=== PATIENT | male | born 1970 | race Caucasian/White ===

== ENCOUNTER 2017-04-28 04:26 | Emergency (ER) | payer BC ==
--- NOTE | 2017-04-28 05:09 | EDM.PDOC ---
<Luis Chan - Last Filed: 04/28/17 07:06> ED HPI GENERAL MEDICAL PROBLEM - General Chief Complaint: Back Pain or Injury Stated Complaint: LOWER LEFT BACK PAIN Time Seen by Provider: 04/28/17 05:00 Source of Information: Reports: Patient History Limitations: Reports: No Limitations - History of Present Illness INITIAL COMMENTS - FREE TEXT/NARRATIVE: For 46 years old male patient presents with chief complaint of left-sided low back pain and left flank pain, .started yesterday morning. Lasted 45 minutes and resolved spontaneously. Pain restarted again 2 hours ago, sharp, constant. Radiating slightly forward to the left side his abdomen. Started to resolve by the time he arrived here. Denies any urinary symptoms. Normal bowel movement couple hours ago. No blood in the urine or stool. Denies any diarrhea or constipation. Denies any fever. Denies any trauma or injury. Complaining some nausea with no vomiting. Left Lower Back Pain Score (Numeric/FACES): 10 - Related Data Allergies Allergy/AdvReac Type Severity Reaction Status Date / Time No Known Allergies Allergy Verified 04/28/17 04:46 Home Meds: Home Meds NK [No Known Home Meds] 04/28/17 [History] Past Medical History Respiratory History: Reports: Sleep Apnea Social & Family History - Tobacco Use Smoking Status *Q: Unknown Ever Smoked ED ROS GENERAL - Review of Systems Review Of Systems: ROS reveals no pertinent complaints other than HPI. Constitutional: Reports: No Symptoms HEENT: Reports: No Symptoms Respiratory: Reports: No Symptoms Cardiovascular: Reports: No Symptoms GI/Abdominal: Reports: No Symptoms : Reports: No Symptoms Musculoskeletal: Reports: Back Pain, Muscle Pain, Other (.). Denies: Neck Pain , Leg Pain, Joint Pain, Joint Swelling ED EXAM,LOWER BACK PAIN/INJURY - Physical Exam Exam: See Below Exam Limited By: No Limitations General Appearance: Alert, WD/WN, No Apparent Distress Head: Atraumatic, Normocephalic Neck: Normal Inspection, Supple, Non-Tender, Full Range of Motion Respiratory/Chest: No Respiratory Distress, Lungs Clear, Normal Breath Sounds, No Accessory Muscle Use, Chest Non-Tender Cardiovascular: Normal Peripheral Pulses, Regular Rate, Rhythm, No Edema, No Gallop, No JVD, No Murmur, No Rub GI/Abdominal: Normal Bowel Sounds, Soft, Non-Tender, No Organomegaly, No Distention, No Abnormal Bruit, No Mass Back Exam: Normal Inspection, Full Range of Motion, CVA Tenderness (L). No: CVA Tenderness (R), Decreased Range of Motion, Muscle Spasm, Paraspinal Tenderness Extremities: Normal Inspection, Normal Range of Motion, Non-Tender, No Pedal Edema, Normal Capillary Refill Neurological: Alert, Normal Mood/Affect, Normal Dorsiflexion, CN II-XII Intact, Normal Plantar Flexion, Normal Gait, Normal Reflexes, No Motor/Sensory Deficits , Oriented x 3 Psychiatric: Normal Affect, Normal Mood Skin Exam: Warm, Dry, Intact, Normal Color, No Rash Course - Vital Signs Last Recorded V/S: Last Vital Signs Temp 98.1 F 04/28/17 06:35 Pulse 68 04/28/17 07:27 Resp 14 04/28/17 07:27 BP 158/115 H 04/28/17 07:27 Pulse Ox 99 04/28/17 07:27 - Orders/Labs/Meds Orders: Active Orders 24 hr Category Date Time Status Abdomen Pelvis wo Cont [CT] Stat Exams 04/28/17 06:38 Taken Labs: Laboratory Tests 04/28/17 04/28/17 04/28/17 Range/Units 05:40 05:45 05:45 WBC 11.5 H (4.5-11.0) K/uL RBC 5.10 (4.30-5.90) M/uL Hgb 15.3 H (12.0-15.0) g/dL Hct 43.7 (40.0-54.0) % MCV 86 (80-98) fL MCH 30 (27-31) pg MCHC 35 (32-36) % Plt Count 247 (150-400) K/uL Neut % (Auto) 80 H (36-66) % Lymph % (Auto) 12 L (24-44) % Kings % (Auto) 7 H (2-6) % Eos % (Auto) 1 L (2-4) % Baso % (Auto) 1 (0-1) % Sodium 139 L (140-148) mmol/L Potassium 3.3 L (3.6-5.2) mmol/L Chloride 106 (100-108) mmol/L Carbon Dioxide 25 (21-32) mmol/L Anion Gap 11.3 (5.0-14.0) mmol/L BUN 13 (7-18) mg/dL Creatinine 1.0 (0.8-1.3) mg/dL Est Cr Clr Drug Dosing 88.35 mL/min Estimated GFR (MDRD) > 60 (>60) Glucose 135 H (74-106) mg/dL Calcium 8.6 (8.5-10.1) mg/dL Total Bilirubin 0.5 (0.2-1.0) mg/dL AST 18 (15-37) U/L ALT 42 (12-78) U/L Alkaline Phosphatase 91 (46-116) U/L Total Protein 7.0 (6.4-8.2) g/dL Albumin 3.8 (3.4-5.0) g/dL Globulin 3.2 (2.3-3.5) g/dL Albumin/Globulin Ratio 1.2 (1.2-2.2) Lipase 138 (73-393) U/L Urine Color Yellow Urine Appearance Clear Urine pH 5.0 (4.5-8.0) Ur Specific Fenton 1.030 (1.008-1.030) Urine Protein Negative (NEGATIVE) mg/dL Urine Glucose (UA) Normal (NEGATIVE) mg/dL Urine Ketones Negative (NEGATIVE) mg/dL Urine Occult Blood Large (NEGATIVE) Urine Nitrite Negative (NEGAITVE) Urine Bilirubin Negative (NEGATIVE) Urine Urobilinogen 1 (NORMAL) mg/dL Ur Leukocyte Esterase Negative (NEGATIVE) Urine RBC 10-20 H (0-5) Urine WBC 5-10 H (0-5) Ur Epithelial Cells Few Amorphous Sediment Few Urine Bacteria Few Urine Mucus Few Urine Other See note Meds: Medications Discontinued Medications Generic Name Dose Route Start Last Admin Trade Name Freq PRN Reason Stop Dose Admin Sodium Chloride 1,000 mls @ 999 mls/hr 04/28/17 05:17 04/28/17 05:41 Normal Saline IV 04/28/17 06:17 999 mls/hr .BOLUS STA Administration Ketorolac Tromethamine 30 mg 04/28/17 07:26 04/28/17 07:32 Toradol IVPUSH 04/28/17 07:27 30 mg ONETIME ONE Administration Morphine Sulfate 4 mg 04/28/17 05:18 04/28/17 05:41 Morphine IVPUSH 04/28/17 05:19 4 mg ONETIME ONE Administration Morphine Sulfate 4 mg 04/28/17 06:23 04/28/17 06:32 Morphine IVPUSH 04/28/17 06:24 4 mg ONETIME ONE Administration Ondansetron HCl 4 mg 04/28/17 05:17 04/28/17 05:41 Zofran IVPUSH 04/28/17 05:18 4 mg ONETIME ONE Administration Ondansetron HCl 4 mg 04/28/17 06:22 04/28/17 06:33 Zofran IVPUSH 04/28/17 06:23 4 mg ONETIME ONE Administration Potassium Chloride 20 meq 04/28/17 06:42 04/28/17 07:35 Klor-Con M20 PO 04/28/17 06:43 20 meq ONETIME ONE Administration Tamsulosin HCl 0.4 mg 04/28/17 08:10 04/28/17 08:29 Flomax PO 04/28/17 08:11 0.4 mg ONETIME ONE Administration - Re-Assessments/Exams Free Text/Narrative Re-Assessment/Exam: 04/28/17 07:08 Patient was seen and examined shortly after arrival. Stable. Given 1 L normal saline bolus. 4 milligrams IV morphine 2. Also 4 mg IV and then 2. Symptom markedly improved. Lab has been reviewed. Suspicious for kidney stone. CT abdomen and pelvis stone protocol has been ordered. Patient care was transferred to at time shift exchange in a stable condition pending CT result. Departure - Departure Disposition: Home, Self-Care 01 Clinical Impression: Renal colic on left side, Left nephrolithiasis - Discharge Information Instructions: Renal Colic, [id number], Kidney Stones, [id number] Referrals: Chuck Randall MD [Primary Care Provider] - Forms: ED Department Discharge Care Plan Goals: Take ketorolac every 6-8 hours and add stronger pain medication as prescribed if needed. Diet and activity as tolerated, if still having symptoms take 1 Flomax daily in the morning. Recheck anytime if worsening or concerns. <Kemal Matos - Last Filed: 04/28/17 10:30> Course - Re-Assessments/Exams Free Text/Narrative Re-Assessment/Exam: 04/28/17 08:19 Patient care was received from Dr. Rabie. Patient returned from CT scan very uncomfortable, needing 30 mg of IV Toradol. This gave him good relief. The CT confirmed a 7-8 mm stone in the proximal left ureter. Hydronephrosis was present. Creatinine and GFR were normal. He needs to leave for his employment tomorrow morning on [place] [address] I discussed this with the general office clerk on-call but no procedure could be done today. He was sent with a copy of his labs, CT scan and CT report, put on ketorolac every 6-8 hours for the next several days and 0.4 mg of Flomax daily. He was also given 20 hydrocodone to use for extra pain control. Departure - Departure Time of Disposition: 08:36 Condition: Good
[2017-04-28] MEDS ORDERED: Sodium Chloride 0.9% 1,000 ML IV STA (05:17)
[2017-04-28] MEDS ORDERED: Ondansetron 4 MG/2 ML SDV IVPUSH ONE ×2 (05:17→06:22)
[2017-04-28] MEDS ORDERED: Morphine 4 MG/ML Syringe IVPUSH ONE ×2 (05:18→06:23)
[2017-04-28] MEDS ORDERED: Potassium Chloride 20 MEQ Tab.ER PO ONE (06:42)
[2017-04-28] MEDS ORDERED: Ketorolac 30 MG/ML SDV IVPUSH ONE (07:26)
[2017-04-28] MEDS ORDERED: Tamsulosin 0.4 MG Cap.ER PO ONE (08:10)
== END 2017-04-28 08:37 | disposition home or self-care (01) ==
LOC: JP.ED 04:26
DX: N13.2 Hydronephrosis with renal and ureteral calculous obstruction (principal)
CPT/HCPCS: 36415; 74176; 80053; 81001; 83690; 85025; 96361; 96374; 96375; 96376; 99284; A9270; J1885; J2270; J2405; J7040